=== PATIENT | female | born 1980 ===

== ENCOUNTER 2022-08-26 10:15 | Inpatient (IN) ==
[2022-08-26 10:53] LABS: Eosinophils # 0.3 10*3/uL (0.0-0.87); Eosinophils % 3.6 % (0.00-10.9); Hematocrit 39.4 VOL% (35.7-47.0); Hemoglobin 13.5 GM/DL (12.0-16.0); Immature Granulocytes % 0.3 %; Immature Granulocytes Absolute 0.02 #; Lymphocytes # 1.6 10*3/uL (1.4-4.0); Lymphocytes % 20.6 % (21.3-54.2); Mean Corpuscular HGB Conc 34.3 GM/DL (32-36); Mean Corpuscular Volume 89.7 FL (87-102); Mean Platelet Volume 9.6 FL (9.6-12.0); Monocytes # 0.4 10*3/uL (0.11-0.8); Monocytes % 5.5 % (1.7-12.7); Platelet Count 316 T/CUMM (130-400); Red Blood Count 4.39 MC/CUMM (3.8-5.5); Red Cell Distribution Width 12.3 % (9.3-17.3); White Blood Count 7.9 T/CUMM (4-12)
[2022-08-26 11:03] LABS: Alanine Aminotransferase 13 U/L (13-56); Albumin 1.1 G/DL (3.4-5.0); Alkaline Phosphatase 154 U/L (45-117); Aspartate Amino Transferase 13 U/L (0-37); Bilirubin,Total < 0.39 MG/DL (0.20-1.00); Blood Urea Nitrogen 8 MG/DL (7-18); Calcium 7.9 MG/DL (8.5-10.1); Carbon Dioxide 36 MMOL/L (21-32); Chloride 95 MMOL/L (98-107); Osmolality,Calculated 301.7 MOS/KG (273-304); Sodium 138 MMOL/L (136-145)
[2022-08-26 11:05] LABS: Potassium 2.5 MMOL/L (3.5-5.1)
[2022-08-26 11:06] LABS: Glucose 622 MG/DL (74-106)
[2022-08-26] MEDS ORDERED: SODIUM CHLORIDE 0.9% 1,000 ML IV STA (12:00)
[2022-08-26] MEDS ORDERED: POTASSIUM CHLORIDE 20 MEQ TABLET PO STA ×2 (12:01→13:19)
[2022-08-26] MEDS ORDERED: INSULIN REGULAR 100 UNIT/ML SUBCUT STA (12:23)
[2022-08-26] MEDS ORDERED: hydrALAZINE 20 MG/1 ML VIAL IV STA (13:19)
[2022-08-26] MEDS ORDERED: hydrALAZINE 20 MG/1 ML VIAL IV PRN (13:24)
[2022-08-26] MEDS ORDERED: ACETAMINOPHEN 325 MG TABLET PO PRN (13:24)
[2022-08-26] MEDS ORDERED: GLUCAGON 1 MG VIAL IM PRN (13:24)
[2022-08-26] MEDS: SODIUM CHLOR 0.9% KCL 40 MEQ 40 MEQ/1,000 ML BAG IV SCH ×2 (13:35→22:27)
[2022-08-26] MEDS: ENOXAPARIN 40 MG/0.4 ML SYRINGE SUBCUT SCH (13:37)
[2022-08-26 13:51] LABS: Thyroid Stimulating Hormone 4.37 uIU/ml (0.358-3.74)
[2022-08-26] MEDS ORDERED: lisinopriL 10 MG TABLET PO STA (14:27)
[2022-08-26] MEDS ORDERED: POTASSIUM CHLORIDE 20 MEQ TABLET PO ONE ×2 (16:30→20:07)
[2022-08-26] MEDS ORDERED: LABETALOL 20 MG/4 ML SYRINGE IV ONE (17:23)
[2022-08-26] MEDS: INSULIN REGULAR 100 UNIT/ML SUBCUT SCH ×2 (18:04→20:33)
[2022-08-26 19:25] LABS: Calcium 7.7 MG/DL (8.5-10.1); Osmolality,Calculated 280.7 MOS/KG (273-304)
[2022-08-26 19:28] LABS: Potassium 2.4 MMOL/L (3.5-5.1)
[2022-08-26] MEDS: carvediloL 12.5 MG TABLET PO SCH (20:26)
[2022-08-26] MEDS: lisinopriL 10 MG TABLET PO SCH (20:26)
[2022-08-26] MEDS: INSULIN GLARGINE 100 UNIT/ML SUBCUT SCH (20:34)
[2022-08-26] MEDS ORDERED: POTASSIUM CHLORIDE 20 MEQ TABLET PO SCH (21:00)
[2022-08-26] MEDS ORDERED: methylPREDNISolone SOD SUC 40 MG/1 ML VIAL IV SCH (22:00)
[2022-08-26] MEDS: cefTRIAXone 2,000 MG in SODIUM CHLORIDE 0.9% 100 ML IV SCH (22:18)
[2022-08-26 23:37] LABS: Protein/Creatinine Ratio,Urine 8.5 RATIO
[2022-08-26 23:55] LABS: Bacteria,Urine Occasional /HPF (Few); Protein,Urine >=300 mg/dL (Negative); RBC,Urine 11 /HPF (0-4); Squamous Epithelial Cell,Urine Many /HPF (0-10); Urine Appearance Slightly Cloudy (Clear); Urine Color Yellow (Yellow); Urine pH 6.5 (4.5-8.0)
[2022-08-26 23:56] LABS: Bilirubin,Urine Negative (Negative); Blood, Urine Moderate mg/dL (Negative); Glucose,Urine (UA) 250 mg/dL (Negative); Ketones,Urine TR mg/dL (Negative); Nitrite,Urine Negative (Negative); Urine Urobilinogen 0.2 eU/dL (<2.0)
[2022-08-27 06:49] LABS: Eosinophils % 0.1 % (0.00-10.9); Hematocrit 37.2 VOL% (35.7-47.0); Hemoglobin 12.7 GM/DL (12.0-16.0); Immature Granulocytes % 0.4 %; Immature Granulocytes Absolute 0.03 #; Lymphocytes # 0.8 10*3/uL (1.4-4.0); Lymphocytes % 9.9 % (21.3-54.2); Mean Corpuscular HGB Conc 34.1 GM/DL (32-36); Mean Corpuscular Volume 90.7 FL (87-102); Mean Platelet Volume 10.1 FL (9.6-12.0); Monocytes # 0.1 10*3/uL (0.11-0.8); Monocytes % 1.3 % (1.7-12.7); Neutrophils % 88.3 % (38.7-73.9); Platelet Count 292 T/CUMM (130-400); Red Cell Distribution Width 12.6 % (9.3-17.3); White Blood Count 7.7 T/CUMM (4-12)
[2022-08-27 07:05] LABS: Calcium 7.6 MG/DL (8.5-10.1); Osmolality,Calculated 278.5 MOS/KG (273-304); Potassium 3.9 MMOL/L (3.5-5.1)
[2022-08-27] MEDS ORDERED: MAGNESIUM SULF RIDER 2 GM/50 ML PREMIX IV ONE (09:00)
[2022-08-27] MEDS ORDERED: lisinopriL 10 MG TABLET PO SCH (09:00)
[2022-08-27] MEDS: POTASSIUM CHLORIDE 20 MEQ TABLET PO SCH ×3 (09:25→21:14)
[2022-08-27] MEDS: POTASSIUM CHLORIDE RIDER 10 MEQ/100 ML PREMIX IV SCH ×2 (09:25→11:09)
[2022-08-27] MEDS: PANTOPRAZOLE 40 MG TABLET PO SCH (09:25)
[2022-08-27] MEDS: BISACODYL 5 MG TABLET PO SCH ×3 (09:25→23:27)
[2022-08-27] MEDS: carvediloL 12.5 MG TABLET PO SCH ×2 (09:26→21:14)
[2022-08-27] MEDS: ESCITALOPRAM 10 MG TABLET PO SCH (09:26)
[2022-08-27] MEDS: DAPAGLIFLOZIN 10 MG TABLET PO SCH (09:26)
[2022-08-27] MEDS: INSULIN REGULAR 100 UNIT/ML SUBCUT SCH ×4 (09:26→21:16)
[2022-08-27] MEDS: lisinopriL 10 MG TABLET PO SCH ×2 (09:26→21:14)
[2022-08-27] MEDS: ENOXAPARIN 40 MG/0.4 ML SYRINGE SUBCUT SCH (13:49)
[2022-08-27] MEDS: FUROSEMIDE 40 MG/4 ML VIAL IV SCH (17:00)
[2022-08-27] MEDS ORDERED: POLYETHYLENE GLYCOL POWDER 255 GM BOTTLE PO ONE (18:00)
[2022-08-27] MEDS: INSULIN GLARGINE 100 UNIT/ML SUBCUT SCH (21:16)
[2022-08-27] MEDS: cefTRIAXone 2,000 MG in SODIUM CHLORIDE 0.9% 100 ML IV SCH (21:18)
[2022-08-28] MEDS: DEXTROSE 10% 250 ML BAG IV PRN ×2 (03:42→07:12)
[2022-08-28 04:19] LABS: Basophils % 0.1 % (0.0-0.8); Eosinophils # 0.1 10*3/uL (0.0-0.87); Eosinophils % 1.7 % (0.00-10.9); Hemoglobin 11.8 GM/DL (12.0-16.0); Immature Granulocytes % 0.3 %; Immature Granulocytes Absolute 0.02 #; Lymphocytes # 2.1 10*3/uL (1.4-4.0); Mean Corpuscular HGB Conc 33.7 GM/DL (32-36); Mean Corpuscular Volume 92.1 FL (87-102); Mean Platelet Volume 9.4 FL (9.6-12.0); Monocytes # 0.5 10*3/uL (0.11-0.8); Monocytes % 6.8 % (1.7-12.7); Neutrophils % 64.1 % (38.7-73.9); Platelet Count 322 T/CUMM (130-400); Red Cell Distribution Width 12.8 % (9.3-17.3); White Blood Count 7.8 T/CUMM (4-12)
[2022-08-28 04:39] LABS: Alanine Aminotransferase 11 U/L (13-56); Albumin 0.9 G/DL (3.4-5.0); Alkaline Phosphatase 101 U/L (45-117); Aspartate Amino Transferase 18 U/L (0-37); Bilirubin,Total < 0.39 MG/DL (0.20-1.00); Blood Urea Nitrogen 10 MG/DL (7-18); Calcium 7.7 MG/DL (8.5-10.1); Carbon Dioxide 33 MMOL/L (21-32); Chloride 103 MMOL/L (98-107); Glucose 101 MG/DL (74-106); Osmolality,Calculated 279.3 MOS/KG (273-304); Potassium 2.8 MMOL/L (3.5-5.1); Sodium 141 MMOL/L (136-145); Total Protein 4.8 G/DL (6.4-8.2)
[2022-08-28] MEDS ORDERED: POTASSIUM CHLORIDE RIDER 10 MEQ/100 ML PREMIX IV PRN (05:17)
[2022-08-28] MEDS ORDERED: GLUCOSE GEL 15 GM TUBE PO ONE (05:48)
[2022-08-28] MEDS: DEXTROSE 5% NACL 0.45% 1,000 ML IV SCH ×2 (06:07→13:45)
[2022-08-28] MEDS: INSULIN REGULAR 100 UNIT/ML SUBCUT SCH ×4 (07:40→21:09)
[2022-08-28] MEDS: carvediloL 12.5 MG TABLET PO SCH ×2 (08:10→16:08)
[2022-08-28] MEDS: FUROSEMIDE 40 MG/4 ML VIAL IV SCH ×2 (08:14→16:26)
[2022-08-28] MEDS: POTASSIUM CHLORIDE RIDER 10 MEQ/100 ML PREMIX IV SCH ×4 (08:58→13:40)
[2022-08-28] MEDS: POTASSIUM CHLORIDE 20 MEQ TABLET PO SCH ×3 (09:37→21:09)
[2022-08-28] MEDS: lisinopriL 10 MG TABLET PO SCH ×2 (09:38→21:09)
[2022-08-28] MEDS ORDERED: propofoL 200 MG/20 ML VIAL IV ONE (12:28)
[2022-08-28] MEDS ORDERED: LIDOCAINE 2% 5 ML VIAL ONE (12:28)
[2022-08-28] MEDS: SODIUM CHLORIDE 0.9% 500 ML IV SCH (13:11)
[2022-08-28] MEDS: ENOXAPARIN 40 MG/0.4 ML SYRINGE SUBCUT SCH (13:39)
[2022-08-28] MEDS: PANTOPRAZOLE 40 MG TABLET PO SCH (14:03)
[2022-08-28] MEDS: SPIRONOLACTONE 25 MG TABLET PO SCH ×2 (14:03→21:09)
[2022-08-28] MEDS: DAPAGLIFLOZIN 10 MG TABLET PO SCH (14:03)
[2022-08-28] MEDS: ESCITALOPRAM 10 MG TABLET PO SCH (14:04)
[2022-08-28] MEDS: SODIUM CHLOR 0.9% KCL 40 MEQ 40 MEQ/1,000 ML BAG IV SCH (14:29)
[2022-08-28] MEDS: cefTRIAXone 2,000 MG in SODIUM CHLORIDE 0.9% 100 ML IV SCH (21:10)
[2022-08-28] MEDS: INSULIN GLARGINE 100 UNIT/ML SUBCUT SCH (21:10)
[2022-08-29] MEDS: DEXTROSE 5% NACL 0.45% 1,000 ML IV SCH ×2 (04:28→20:17)
[2022-08-29 05:41] LABS: Basophils % 0.1 % (0.0-0.8); Eosinophils # 0.2 10*3/uL (0.0-0.87); Eosinophils % 2.2 % (0.00-10.9); Hematocrit 39.6 VOL% (35.7-47.0); Immature Granulocytes % 0.4 %; Immature Granulocytes Absolute 0.03 #; Lymphocytes # 1.8 10*3/uL (1.4-4.0); Lymphocytes % 26.7 % (21.3-54.2); Mean Corpuscular HGB Conc 32.8 GM/DL (32-36); Mean Corpuscular Volume 94.1 FL (87-102); Monocytes # 0.4 10*3/uL (0.11-0.8); Monocytes % 5.8 % (1.7-12.7); Neutrophils % 64.8 % (38.7-73.9); Platelet Count 366 T/CUMM (130-400); Red Blood Count 4.21 MC/CUMM (3.8-5.5); Red Cell Distribution Width 12.9 % (9.3-17.3); White Blood Count 6.9 T/CUMM (4-12)
[2022-08-29 06:09] LABS: Calcium 7.8 MG/DL (8.5-10.1); Potassium 4.1 MMOL/L (3.5-5.1)
[2022-08-29] MEDS: INSULIN REGULAR 100 UNIT/ML SUBCUT SCH ×4 (08:34→21:43)
[2022-08-29] MEDS: FUROSEMIDE 40 MG/4 ML VIAL IV SCH ×2 (08:34→16:40)
[2022-08-29] MEDS: lisinopriL 10 MG TABLET PO SCH (08:35)
[2022-08-29] MEDS: POTASSIUM CHLORIDE 20 MEQ TABLET PO SCH ×3 (08:35→21:42)
[2022-08-29] MEDS: carvediloL 12.5 MG TABLET PO SCH ×2 (08:35→16:41)
[2022-08-29] MEDS: ESCITALOPRAM 10 MG TABLET PO SCH (08:35)
[2022-08-29] MEDS: PANTOPRAZOLE 40 MG TABLET PO SCH (08:35)
[2022-08-29] MEDS: SPIRONOLACTONE 25 MG TABLET PO SCH ×2 (08:36→21:41)
[2022-08-29] MEDS: metOLazone 5 MG TABLET PO SCH (08:36)
[2022-08-29] MEDS: DAPAGLIFLOZIN 10 MG TABLET PO SCH (09:30)
[2022-08-29] MEDS: VANCOMYCIN 125 MG CAPSULE PO SCH ×3 (11:20→21:42)
[2022-08-29] MEDS: ENOXAPARIN 40 MG/0.4 ML SYRINGE SUBCUT SCH (14:24)
[2022-08-29 16:48] LABS: Patient Height,Urine 69 Inches; Patient Weight,Urine 65 KGs; Total Volume,Urine 5100 ML (400-2000)
[2022-08-29 17:11] LABS: Creatinine Clearance Urine 63.46 ML/MIN (70-115)
[2022-08-29] MEDS ORDERED: FLUCONAZOLE 150 MG TABLET PO ONE (18:08)
[2022-08-29] MEDS: SODIUM CHLORIDE 0.9% 500 ML IV SCH (20:16)
[2022-08-29] MEDS: CHOLESTYRAMINE 4 GM PACK PO SCH (21:42)
[2022-08-29] MEDS: INSULIN GLARGINE 100 UNIT/ML SUBCUT SCH (21:42)
[2022-08-29] MEDS: cefTRIAXone 2,000 MG in SODIUM CHLORIDE 0.9% 100 ML IV SCH (21:43)
[2022-08-30] MEDS: traMADol 50 MG TABLET PO PRN ×3 (03:27→12:55)
[2022-08-30] MEDS: VANCOMYCIN 125 MG CAPSULE PO SCH ×4 (04:36→21:48)
[2022-08-30 05:35] LABS: Basophils % 0.2 % (0.0-0.8); Eosinophils # 0.3 10*3/uL (0.0-0.87); Eosinophils % 4.4 % (0.00-10.9); Hematocrit 35.7 VOL% (35.7-47.0); Hemoglobin 11.7 GM/DL (12.0-16.0); Immature Granulocytes % 0.7 %; Immature Granulocytes Absolute 0.04 #; Lymphocytes # 1.9 10*3/uL (1.4-4.0); Lymphocytes % 30.6 % (21.3-54.2); Mean Corpuscular HGB Conc 32.8 GM/DL (32-36); Mean Corpuscular Volume 92.2 FL (87-102); Mean Platelet Volume 9.8 FL (9.6-12.0); Monocytes # 0.5 10*3/uL (0.11-0.8); Monocytes % 8.5 % (1.7-12.7); Neutrophils % 55.6 % (38.7-73.9); Platelet Count 331 T/CUMM (130-400); Red Blood Count 3.87 MC/CUMM (3.8-5.5); Red Cell Distribution Width 12.6 % (9.3-17.3); White Blood Count 6.1 T/CUMM (4-12)
[2022-08-30 05:53] LABS: Calcium 8.5 MG/DL (8.5-10.1); Osmolality,Calculated 277.8 MOS/KG (273-304); Potassium 3.7 MMOL/L (3.5-5.1)
[2022-08-30] MEDS: lisinopriL 20 MG TABLET PO SCH (08:20)
[2022-08-30] MEDS: ESCITALOPRAM 10 MG TABLET PO SCH (08:21)
[2022-08-30] MEDS: MULTIVITAMIN (CENTRUM) TABLET PO SCH (08:21)
[2022-08-30] MEDS: POTASSIUM CHLORIDE 20 MEQ TABLET PO SCH ×2 (08:21→20:29)
[2022-08-30] MEDS: SPIRONOLACTONE 25 MG TABLET PO SCH ×2 (08:21→20:29)
[2022-08-30] MEDS: metOLazone 5 MG TABLET PO SCH (08:21)
[2022-08-30] MEDS: PANTOPRAZOLE 40 MG TABLET PO SCH (08:21)
[2022-08-30] MEDS: carvediloL 25 MG TABLET PO SCH ×2 (08:21→16:12)
[2022-08-30] MEDS: DAPAGLIFLOZIN 10 MG TABLET PO SCH (08:21)
[2022-08-30] MEDS: FUROSEMIDE 40 MG/4 ML VIAL IV SCH ×2 (08:22→16:13)
[2022-08-30] MEDS: INSULIN REGULAR 100 UNIT/ML SUBCUT SCH ×4 (08:22→20:28)
[2022-08-30] MEDS: CHOLESTYRAMINE 4 GM PACK PO SCH (09:27)
[2022-08-30] MEDS: ENOXAPARIN 40 MG/0.4 ML SYRINGE SUBCUT SCH (12:49)
[2022-08-30] MEDS: ONDANSETRON 4 MG/2 ML VIAL IV PRN (18:09)
[2022-08-30] MEDS: COLESTIPOL 1 GM TABLET PO SCH (20:29)
[2022-08-30] MEDS: INSULIN GLARGINE 100 UNIT/ML SUBCUT SCH (20:30)
[2022-08-30] MEDS: cefTRIAXone 2,000 MG in SODIUM CHLORIDE 0.9% 100 ML IV SCH (21:47)
[2022-08-31 05:00] LABS: Basophils % 0.1 % (0.0-0.8); Eosinophils # 0.3 10*3/uL (0.0-0.87); Eosinophils % 4.7 % (0.00-10.9); Hematocrit 36.5 VOL% (35.7-47.0); Hemoglobin 12.1 GM/DL (12.0-16.0); Immature Granulocytes % 0.4 %; Immature Granulocytes Absolute 0.03 #; Lymphocytes # 2.2 10*3/uL (1.4-4.0); Lymphocytes % 31.7 % (21.3-54.2); Mean Corpuscular HGB Conc 33.2 GM/DL (32-36); Mean Corpuscular Volume 93.1 FL (87-102); Mean Platelet Volume 9.6 FL (9.6-12.0); Monocytes # 0.4 10*3/uL (0.11-0.8); Monocytes % 6.3 % (1.7-12.7); Neutrophils % 56.8 % (38.7-73.9); Platelet Count 317 T/CUMM (130-400); Red Blood Count 3.92 MC/CUMM (3.8-5.5); Red Cell Distribution Width 12.5 % (9.3-17.3); White Blood Count 6.8 T/CUMM (4-12)
[2022-08-31 05:26] LABS: Calcium 8.9 MG/DL (8.5-10.1); Osmolality,Calculated 277.8 MOS/KG (273-304)
[2022-08-31] MEDS: VANCOMYCIN 125 MG CAPSULE PO SCH ×3 (05:38→15:52)
[2022-08-31] MEDS: SPIRONOLACTONE 25 MG TABLET PO SCH ×2 (08:25→20:41)
[2022-08-31] MEDS: PANTOPRAZOLE 40 MG TABLET PO SCH (08:25)
[2022-08-31] MEDS: COLESTIPOL 1 GM TABLET PO SCH ×2 (08:25→20:41)
[2022-08-31] MEDS: DAPAGLIFLOZIN 10 MG TABLET PO SCH (08:25)
[2022-08-31] MEDS: carvediloL 25 MG TABLET PO SCH ×2 (08:25→16:01)
[2022-08-31] MEDS: metOLazone 5 MG TABLET PO SCH (08:26)
[2022-08-31] MEDS: ESCITALOPRAM 10 MG TABLET PO SCH (08:26)
[2022-08-31] MEDS: POTASSIUM CHLORIDE 20 MEQ TABLET PO SCH ×2 (08:26→20:41)
[2022-08-31] MEDS: CHOLECALCIFEROL 1,000 UNIT TABLET PO SCH (08:26)
[2022-08-31] MEDS: MULTIVITAMIN (CENTRUM) TABLET PO SCH (08:26)
[2022-08-31] MEDS: lisinopriL 20 MG TABLET PO SCH (08:26)
[2022-08-31] MEDS: FUROSEMIDE 40 MG/4 ML VIAL IV SCH ×2 (08:27→15:53)
[2022-08-31] MEDS: INSULIN REGULAR 100 UNIT/ML SUBCUT SCH ×4 (08:29→20:49)
[2022-08-31] MEDS: ENOXAPARIN 40 MG/0.4 ML SYRINGE SUBCUT SCH (12:30)
[2022-08-31] MEDS: traMADol 50 MG TABLET PO PRN (15:52)
[2022-08-31] MEDS: ONDANSETRON 4 MG/2 ML VIAL IV PRN (15:54)
[2022-08-31] MEDS: INSULIN GLARGINE 100 UNIT/ML SUBCUT SCH (20:49)
[2022-08-31] MEDS: cefTRIAXone 2,000 MG in SODIUM CHLORIDE 0.9% 100 ML IV SCH (20:50)
[2022-09-01 05:51] LABS: Basophils % 0.1 % (0.0-0.8); Eosinophils # 0.3 10*3/uL (0.0-0.87); Eosinophils % 3.7 % (0.00-10.9); Hematocrit 36.2 VOL% (35.7-47.0); Hemoglobin 11.7 GM/DL (12.0-16.0); Immature Granulocytes % 0.4 %; Immature Granulocytes Absolute 0.03 #; Lymphocytes # 1.7 10*3/uL (1.4-4.0); Lymphocytes % 25.4 % (21.3-54.2); Mean Corpuscular HGB Conc 32.3 GM/DL (32-36); Mean Corpuscular Volume 92.8 FL (87-102); Mean Platelet Volume 9.4 FL (9.6-12.0); Monocytes # 0.5 10*3/uL (0.11-0.8); Monocytes % 7.7 % (1.7-12.7); Neutrophils % 62.7 % (38.7-73.9); Platelet Count 328 T/CUMM (130-400); Red Cell Distribution Width 12.3 % (9.3-17.3); White Blood Count 6.7 T/CUMM (4-12)
[2022-09-01 06:15] LABS: Calcium 8.6 MG/DL (8.5-10.1); Osmolality,Calculated 286.5 MOS/KG (273-304); Potassium 4.2 MMOL/L (3.5-5.1)
[2022-09-01] MEDS: traMADol 50 MG TABLET PO PRN ×3 (08:30→21:05)
[2022-09-01] MEDS ORDERED: ERGOCALCIFEROL 50,000 UNIT CAPSULE PO ONE (08:30)
[2022-09-01] MEDS: carvediloL 25 MG TABLET PO SCH ×2 (08:38→16:41)
[2022-09-01] MEDS: INSULIN REGULAR 100 UNIT/ML SUBCUT SCH ×3 (08:38→16:41)
[2022-09-01] MEDS: lisinopriL 20 MG TABLET PO SCH (08:39)
[2022-09-01] MEDS: MULTIVITAMIN (CENTRUM) TABLET PO SCH (08:39)
[2022-09-01] MEDS: POTASSIUM CHLORIDE 20 MEQ TABLET PO SCH (08:39)
[2022-09-01] MEDS: ESCITALOPRAM 10 MG TABLET PO SCH (08:39)
[2022-09-01] MEDS: DAPAGLIFLOZIN 10 MG TABLET PO SCH (08:39)
[2022-09-01] MEDS: FUROSEMIDE 40 MG/4 ML VIAL IV SCH ×2 (08:39→16:41)
[2022-09-01] MEDS: SPIRONOLACTONE 25 MG TABLET PO SCH ×2 (08:39→21:06)
[2022-09-01] MEDS: COLESTIPOL 1 GM TABLET PO SCH ×2 (08:39→21:05)
[2022-09-01] MEDS: PANTOPRAZOLE 40 MG TABLET PO SCH (08:40)
[2022-09-01] MEDS: CHOLECALCIFEROL 1,000 UNIT TABLET PO SCH (08:40)
[2022-09-01] MEDS: metOLazone 5 MG TABLET PO SCH (08:40)
[2022-09-01] MEDS: ENOXAPARIN 40 MG/0.4 ML SYRINGE SUBCUT SCH (14:19)
[2022-09-01] MEDS ORDERED: INSULIN GLARGINE 100 UNIT/ML SUBCUT SCH (21:00)
[2022-09-02 05:34] LABS: Basophils % 0.2 % (0.0-0.8); Eosinophils # 0.3 10*3/uL (0.0-0.87); Eosinophils % 4.8 % (0.00-10.9); Hematocrit 39.1 VOL% (35.7-47.0); Hemoglobin 12.8 GM/DL (12.0-16.0); Immature Granulocytes % 0.5 %; Immature Granulocytes Absolute 0.03 #; Lymphocytes # 1.9 10*3/uL (1.4-4.0); Lymphocytes % 31.7 % (21.3-54.2); Mean Corpuscular HGB Conc 32.7 GM/DL (32-36); Mean Corpuscular Volume 93.3 FL (87-102); Mean Platelet Volume 9.6 FL (9.6-12.0); Monocytes # 0.6 10*3/uL (0.11-0.8); Monocytes % 9.8 % (1.7-12.7); Platelet Count 343 T/CUMM (130-400); Red Blood Count 4.19 MC/CUMM (3.8-5.5); Red Cell Distribution Width 12.2 % (9.3-17.3); White Blood Count 5.8 T/CUMM (4-12)
[2022-09-02 06:02] LABS: Calcium 9.1 MG/DL (8.5-10.1); Osmolality,Calculated 276.5 MOS/KG (273-304); Potassium 3.4 MMOL/L (3.5-5.1)
[2022-09-02] MEDS: INSULIN REGULAR 100 UNIT/ML SUBCUT SCH ×3 (06:46→12:05)
[2022-09-02] MEDS ORDERED: ERGOCALCIFEROL 50,000 UNIT CAPSULE PO ONE ×2 (09:00→10:30)
[2022-09-02] MEDS ORDERED: POTASSIUM CHLORIDE 20 MEQ TABLET PO SCH (09:00)
[2022-09-02] MEDS: COLESTIPOL 1 GM TABLET PO SCH (09:02)
[2022-09-02] MEDS: DAPAGLIFLOZIN 10 MG TABLET PO SCH (09:02)
[2022-09-02] MEDS: CHOLECALCIFEROL 1,000 UNIT TABLET PO SCH (09:03)
[2022-09-02] MEDS: lisinopriL 20 MG TABLET PO SCH (09:03)
[2022-09-02] MEDS: carvediloL 25 MG TABLET PO SCH (09:03)
[2022-09-02] MEDS: traMADol 50 MG TABLET PO PRN (09:03)
[2022-09-02] MEDS: ESCITALOPRAM 10 MG TABLET PO SCH (09:03)
[2022-09-02] MEDS: PANTOPRAZOLE 40 MG TABLET PO SCH (09:03)
[2022-09-02] MEDS: SPIRONOLACTONE 25 MG TABLET PO SCH (09:03)
[2022-09-02] MEDS: FUROSEMIDE 40 MG/4 ML VIAL IV SCH (09:04)
[2022-09-02] MEDS: metOLazone 5 MG TABLET PO SCH (09:04)
[2022-09-02] MEDS: MULTIVITAMIN (CENTRUM) TABLET PO SCH (09:04)
[2022-09-02 11:29] VITALS: BP 133/79
[2022-09-02 14:16] LABS: Albumin Excretion Rate 1075 mcg/min (<20)
[2022-09-02] MEDS: ENOXAPARIN 40 MG/0.4 ML SYRINGE SUBCUT SCH (14:35)
[2022-09-03] MEDS ORDERED: FUROSEMIDE 80 MG TABLET PO SCH (09:00)
== END 2022-09-02 14:38 | disposition home or self-care (01) | DRG 468 ==
LOC: N.2W 10:15 → N.ED 10:15 → N.2W 14:57 → SUATTDRO 15:03 → N.3E 08-27 08:51
PROVIDERS: ADMIT Hospitalist; ATTEND Emergency Medicine